=== PATIENT | female | born 1995 | race African-American/Black ===

== ENCOUNTER 2016-06-05 01:43 | Emergency (ER) | payer OTHER ==
[2016-06-05] MEDS ORDERED: NITROFURANTOIN (MACROBID) 100 MG CAP As Ordered ONE (03:19)
--- NOTE | 2016-06-05 03:43 | EDDOCDS ---
Nurse's Notes [facility] Name: Eloisa Khanna Age: 21 yrs Sex: Female : 1995 Arrival Date: 06/05/2016 Time: 01:43 Bed 15 Private MD: ALONSO Rahman Diagnosis: Unspecified infection of urinary tract in Presentation: 06/05 01:48 Presenting complaint: Patient states: stomach pain and chest pain; reports stomach pain af2 since this am- on and off. reports anxiety and trouble breathing with pulling sensation to left chest- chest pain has since resolved- states it comes and goes. Aspirin was not taken prior to arrival. Adult Sepsis Screening: The patient does not have new or worsening altered mentation. Patient's respiratory rate is less than 22. Systolic blood pressure is greater than 100. Patient has a qSOFA score of 0- Negative Sepsis Screen. Suicide/Homicide risk assessment- the patient denies having any suicidal and/or homicidal ideations and does not present with any other emotional, behavioral or mental health complaints. 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 Transition of care: patient was not received from another setting of care. 01:48 Acuity: JED Level 3 af2 01:48 Method Of Arrival: Ambulance af2 Triage Assessment: 01:50 General: Appears in no apparent distress, comfortable, Behavior is appropriate for age, af2 cooperative. Pain: Location: xyphoid area Pain currently is 1 out of 10 on a pain scale. Pt Declines HIV testing. Cardiovascular: Chest pain is described as Pain is 1 out of 10 on a pain scale. radiates Does not radiate. episodes are intermittent began 30 minutes prior to arrival. Respiratory: Airway is patent Respiratory effort is even, unlabored. GI: Reports lower abdominal pain, upper abd pain, Burning. Derm: Skin is normal. 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 Vitamin Oral tab 1 tab once daily - PMHx: none; - PSHx: none; - Social history: Smoking status: Patient states was never smoker of tobacco. No barriers to communication noted, The patient speaks fluent Malaysian. - Family history: Not pertinent. - : The pt / caregiver states he / she is not on anticoagulants. Home medication list is obtained from the patient. - Exposure Risk Screening:: None identified. Screenin:09 Screening information is obtained from the patient. Fall risk: No risks identified. af2 Assistance ADL's: requires no assistance with activities of daily living. Abuse/DV Screen: The patient / caregiver reports he/she is: not in a situation that causes fear, pain or injury. Nutritional screening: No deficits noted. Advance Directives: Currently, there is no health care proxy. home support is adequate. Assessment: 02:10 General: Appears in no apparent distress, comfortable, Behavior is appropriate for age, af2 cooperative. Cardiovascular: No deficits noted. Respiratory: Airway is patent Respiratory effort is even, unlabored. Derm: Skin is normal. 03:24 General: Appears in no apparent distress, comfortable, Behavior is appropriate for age, af2 cooperative. Neurological: Level of Consciousness is awake, alert, obeys commands. Respiratory: Airway is patent Respiratory effort is even, unlabored. Derm: Skin is normal. 03:25 Cardiovascular: Rhythm is. af2 Vital Signs: 01:56 BP 146 / 65 LA Sitting; Pulse 83; Resp 18 S; Temp 96.1(O); Pulse Ox 98% on R/A; Weight af2 89.36 kg (R); Height 5 ft. 7 in. (170.18 cm) (R); Pain 1/10; 01:56 Body Mass Index 30.85 (89.36 kg, 170.18 cm) af2 Vitals: 01:52 Log In Time N/A - ambulance arrival. af2 ED Course: 01:44 Patient visited by Milagros Hernandez, Circuit Clerk. [facility] 01:44 Patient moved to 15 jl 01:45 ALONSO Rahman is Private Physician. jlm 01:47 Lex York DO is Attending Physician. cs11 01:47 Patient visited by Lex York DO. cs11 01:50 Triage Initiated af2 01:57 Patient visited by Kathy Reyes RN. af2 02:09 Urine Culture Sent. af2 02:09 Urinalysis Sent. af2 02:09 Maintain field IV. Dressing intact. Good blood return noted. Site clean & dry. Gauge & af2 site: 20G to left ac.. No procedures done that require assistance. 02:10 Patient visited by Kathy Reyes RN. af2 03:02 [facility] Payment Agreement was scanned into [employer] and attached to record. hs2 03:08 Vernell Grant OB is Referral Physician. cs11 03:09 Patient name changed from Eloisa\S\\S\Khanna\S\ to Eloisa\S\ \S\Khanna. EDMS 03:24 Discontinued IV lock intact, bleeding controlled, pressure dressing applied, No af2 redness/swelling at site. 03:25 The patient / caregiver is instructed regarding the plan of care and ED course. Cardiac af2 monitor on. Pulse ox on. NIBP on. Administered Medications: 03:24 Drug: Nitrofurantoin 100 mg Route: PO; af2 Order Results: Lab Order: Urinalysis; SPEC'M 06/05/16 02:07 Test: APPEARANCE, URINE; Value: HAZY; Range: CLEAR; Status: F Test: COLOR, URINE; Value: YELLOW; Range: YELLOW; Status: F Test: PH,URINE; Value: 6.0; Range: 5.0-9.0; Units: UNITS; Status: F Test: SPECIFIC GRAVITY URINE AUTO; Value: 1.003; Range: 1.002-1.035; Status: F Test: PROTEIN, URINE AUTO; Value: NEGATIVE; Range: NEGATIVE; Units: mg/dL; Status: F Test: GLUCOSE, URINE (UA) AUTO; Value: NEGATIVE; Range: NEGATIVE; Units: mg/dL; Status: F Test: KETONE, URINE AUTO; Value: NEGATIVE; Range: NEGATIVE; Units: mg/dL; Status: F Test: UROBILINOGEN, URINE AUTO; Value: 0.2; Range: 0.0-2.0; Units: mg/dL; Status: F Test: BILIRUBIN, URINE AUTO; Value: NEGATIVE; Range: NEGATIVE; Status: F Test: NITRITE, URINE AUTO; Value: NEGATIVE; Range: NEGATIVE; Status: F Test: LEUKOCYTE ESTERASE, URINE AUTO; Value: TRACE; Range: NEGATIVE; Abnormal: Above high normal; Status: F Test: BLOOD, URINE BLOOD; Value: NEGATIVE; Range: NEGATIVE; Status: F Test: WBC, URINE AUTO; Value: 4; Range: 0-3; Abnormal: Above high normal; Units: /HPF; Status: F Test: RBC, URINE AUTO; Value: 1; Range: 0-3; Units: /HPF; Status: F Test: BACTERIA, URINE AUTO; Value: 1+; Range: NEGATIVE; Abnormal: Above high normal; Status: F Test: SQUAMOUS EPITHELIAL CELL UR AU; Value: 2; Range: 0-6; Units: /HPF; Status: F Test: HYALINE CAST, URINE AUTO; Value: 0; Range: 0-1; Units: /LPF; Status: F Outcome: 03:08 Discharge ordered by Provider. cs11 03:25 Discharge Assessment: Patient awake, alert and oriented x 3. No cognitive and/or af2 functional deficits noted. Patient verbalized understanding of disposition instructions. patient administered narcotics - no. The following High Risk Discharge criteria are identified: None. Discharged to home ambulatory, with significant other. Condition: stable. Discharge instructions given to patient, Instructed on discharge instructions, follow up and referral plans. medication usage, Demonstrated understanding of instructions, medications, Pt was receptive of discharge instructions/ teaching. No special radiology studies were completed. Property :Personal belongings accompany Pt. 03:42 Patient left the ED. af2 Signatures: Dispatcher [employer] EDMS Lex York, DO cs11 Milagros Hernandez, Circuit Clerk Unit Kathy Hayden RN RN af2 Latrice Max, Reg Reg hs2 MTDD
--- NOTE | 2016-06-05 03:43 | EDDOCDS ---
Physician Documentation [facility] Name: Eloisa Khanna Age: 21 yrs Sex: Female : 1995 Arrival Date: 06/05/2016 Time: 01:43 Bed 15 Private MD: Josiah [facility] [place] Disposition: 06/05/16 03:08 Discharged to Home/Self Care. Impression: Unspecified infection of urinary tract in . - Condition is Stable. - Prescriptions for Macrobid 100 mg Oral Capsule - take 100 milligram by ORAL route every 12 hours for 10 days; 20 capsule. - Medication Reconciliation, Local Pharmacy Hours form. - Follow up: Vernell Grant, OB; When: Call to arrange an appointment; Reason: Continuance of care. - Problem is new. - Symptoms have improved. Historical: - Allergies: PENICILLINS (I don't know); - Home Meds: 1. Vitamin Oral tab 1 tab once daily - PMHx: none; - PSHx: none; - Social history: Smoking status: Patient states was never smoker of tobacco. No barriers to communication noted, The patient speaks fluent Montserratian. - Family history: Not pertinent. - : The pt / caregiver states he / she is not on anticoagulants. Home medication list is obtained from the patient. - Exposure Risk Screening:: None identified. 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 7 in. (170.18 cm) (R); Pain 1/10; 01:56 Body Mass Index 30.85 (89.36 kg, 170.18 cm) af2 MDM: 01:59 ECG WITH READING ER PHYS+CARDIAG ordered. EDMS 01:59 ECG WITH READING ER PHYS+CARDIAG ordered. EDMS 02:05 Urinalysis Ordered. EDMS 02:05 Urine Culture Ordered. EDMS 02:49 Financial registration complete. hs2 03:02 [facility] Payment Agreement was scanned into [employer] and attached to record. hs2 03:06 Urinalysis Reviewed. cs11 03:07 Nitrofurantoin 100 mg PO once ordered. cs11 Administered Medications: 03:24 Drug: Nitrofurantoin 100 mg Route: PO; af2 Signatures: Dispatcher [employer] EDMS Lex York, DO cs11 Kathy Reyes RN RN af2 Latrice Max, Reg Reg hs2 The chart was reviewed and I authenticate all verbal orders and agree with the evaluation and treatment provided.Attachments: 03:02 [facility] Payment Agreement hs2 MTDD
--- NOTE | 2016-06-07 04:43 | EDDOCDS ---
Nurse's Notes [facility] Name: Eloisa Khanna Age: 21 yrs Sex: Female : 1995 Arrival Date: 06/05/2016 Time: 01:43 Bed 15 Private MD: ALONSO Rahman Diagnosis: Unspecified infection of urinary tract in Presentation: 06/05 01:48 Presenting complaint: Patient states: stomach pain and chest pain; reports stomach pain af2 since this am- on and off. reports anxiety and trouble breathing with pulling sensation to left chest- chest pain has since resolved- states it comes and goes. Aspirin was not taken prior to arrival. Adult Sepsis Screening: The patient does not have new or worsening altered mentation. Patient's respiratory rate is less than 22. Systolic blood pressure is greater than 100. Patient has a qSOFA score of 0- Negative Sepsis Screen. Suicide/Homicide risk assessment- the patient denies having any suicidal and/or homicidal ideations and does not present with any other emotional, behavioral or mental health complaints. 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 Transition of care: patient was not received from another setting of care. 01:48 Acuity: JED Level 3 af2 01:48 Method Of Arrival: Ambulance af2 Triage Assessment: 01:50 General: Appears in no apparent distress, comfortable, Behavior is appropriate for age, af2 cooperative. Pain: Location: xyphoid area Pain currently is 1 out of 10 on a pain scale. Pt Declines HIV testing. Cardiovascular: Chest pain is described as Pain is 1 out of 10 on a pain scale. radiates Does not radiate. episodes are intermittent began 30 minutes prior to arrival. Respiratory: Airway is patent Respiratory effort is even, unlabored. GI: Reports lower abdominal pain, upper abd pain, Burning. Derm: Skin is normal. 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 Vitamin Oral tab 1 tab once daily - PMHx: none; - PSHx: none; - Social history: Smoking status: Patient states was never smoker of tobacco. No barriers to communication noted, The patient speaks fluent Bolivian. - Family history: Not pertinent. - : The pt / caregiver states he / she is not on anticoagulants. Home medication list is obtained from the patient. - Exposure Risk Screening:: None identified. Screenin:09 Screening information is obtained from the patient. Fall risk: No risks identified. af2 Assistance ADL's: requires no assistance with activities of daily living. Abuse/DV Screen: The patient / caregiver reports he/she is: not in a situation that causes fear, pain or injury. Nutritional screening: No deficits noted. Advance Directives: Currently, there is no health care proxy. home support is adequate. Assessment: 02:10 General: Appears in no apparent distress, comfortable, Behavior is appropriate for age, af2 cooperative. Cardiovascular: No deficits noted. Respiratory: Airway is patent Respiratory effort is even, unlabored. Derm: Skin is normal. 03:24 General: Appears in no apparent distress, comfortable, Behavior is appropriate for age, af2 cooperative. Neurological: Level of Consciousness is awake, alert, obeys commands. Respiratory: Airway is patent Respiratory effort is even, unlabored. Derm: Skin is normal. 03:25 Cardiovascular: Rhythm is. af2 Vital Signs: 01:56 BP 146 / 65 LA Sitting; Pulse 83; Resp 18 S; Temp 96.1(O); Pulse Ox 98% on R/A; Weight af2 89.36 kg (R); Height 5 ft. 7 in. (170.18 cm) (R); Pain 1/10; 01:56 Body Mass Index 30.85 (89.36 kg, 170.18 cm) af2 Vitals: 01:52 Log In Time N/A - ambulance arrival. af2 ED Course: 01:44 Patient visited by Milagros Hernandez, Sql Programmer Analyst. [facility] 01:44 Patient moved to 15 jl 01:45 ALONSO Rahman is Private Physician. jlm 01:47 Lex York DO is Attending Physician. cs11 01:47 Patient visited by Lex York DO. cs11 01:50 Triage Initiated af2 01:57 Patient visited by Kathy Reyes RN. af2 02:09 Urine Culture Sent. af2 02:09 Urinalysis Sent. af2 02:09 Maintain field IV. Dressing intact. Good blood return noted. Site clean & dry. Gauge & af2 site: 20G to left ac.. No procedures done that require assistance. 02:10 Patient visited by Kathy Reyes RN. af2 03:02 [facility] Payment Agreement was scanned into [employer] and attached to record. hs2 03:08 Vernell Grant OB is Referral Physician. cs11 03:09 Patient name changed from Eloisa\S\\S\Khanna\S\ to Eloisa\S\ \S\Khanna. EDMS 03:24 Discontinued IV lock intact, bleeding controlled, pressure dressing applied, No af2 redness/swelling at site. 03:25 The patient / caregiver is instructed regarding the plan of care and ED course. Cardiac af2 monitor on. Pulse ox on. NIBP on. 08:49 T-Sheet-- Draft Copy was scanned into [employer] and attached to record. seh 10:58 PCR was scanned into [employer] and attached to record. gb Administered Medications: 03:24 Drug: Nitrofurantoin 100 mg Route: PO; af2 Order Results: Lab Order: Urinalysis; SPEC'M 06/05/16 02:07 Test: APPEARANCE, URINE; Value: HAZY; Range: CLEAR; Status: F Test: COLOR, URINE; Value: YELLOW; Range: YELLOW; Status: F Test: PH,URINE; Value: 6.0; Range: 5.0-9.0; Units: UNITS; Status: F Test: SPECIFIC GRAVITY URINE AUTO; Value: 1.003; Range: 1.002-1.035; Status: F Test: PROTEIN, URINE AUTO; Value: NEGATIVE; Range: NEGATIVE; Units: mg/dL; Status: F Test: GLUCOSE, URINE (UA) AUTO; Value: NEGATIVE; Range: NEGATIVE; Units: mg/dL; Status: F Test: KETONE, URINE AUTO; Value: NEGATIVE; Range: NEGATIVE; Units: mg/dL; Status: F Test: UROBILINOGEN, URINE AUTO; Value: 0.2; Range: 0.0-2.0; Units: mg/dL; Status: F Test: BILIRUBIN, URINE AUTO; Value: NEGATIVE; Range: NEGATIVE; Status: F Test: NITRITE, URINE AUTO; Value: NEGATIVE; Range: NEGATIVE; Status: F Test: LEUKOCYTE ESTERASE, URINE AUTO; Value: TRACE; Range: NEGATIVE; Abnormal: Above high normal; Status: F Test: BLOOD, URINE BLOOD; Value: NEGATIVE; Range: NEGATIVE; Status: F Test: WBC, URINE AUTO; Value: 4; Range: 0-3; Abnormal: Above high normal; Units: /HPF; Status: F Test: RBC, URINE AUTO; Value: 1; Range: 0-3; Units: /HPF; Status: F Test: BACTERIA, URINE AUTO; Value: 1+; Range: NEGATIVE; Abnormal: Above high normal; Status: F Test: SQUAMOUS EPITHELIAL CELL UR AU; Value: 2; Range: 0-6; Units: /HPF; Status: F Test: HYALINE CAST, URINE AUTO; Value: 0; Range: 0-1; Units: /LPF; Status: F Lab Order: Urine Culture; SPEC'M 06/05/16 02:07 Test: URINE CULTURE; Value: <EXTERNAL COMMENT eCWMed> FULL REPORT IN LAB NOTES (eCW and Medent).; Status: F Test: URINE CULTURE; Value: URINE CULTURE RESULT SPECIMEN APPEARS CONTAMINATED; Status: F Outcome: 03:08 Discharge ordered by Provider. cs11 03:25 Discharge Assessment: Patient awake, alert and oriented x 3. No cognitive and/or af2 functional deficits noted. Patient verbalized understanding of disposition instructions. patient administered narcotics - no. The following High Risk Discharge criteria are identified: None. Discharged to home ambulatory, with significant other. Condition: stable. Discharge instructions given to patient, Instructed on discharge instructions, follow up and referral plans. medication usage, Demonstrated understanding of instructions, medications, Pt was receptive of discharge instructions/ teaching. No special radiology studies were completed. Property :Personal belongings accompany Pt. 03:42 Patient left the ED. af2 Signatures: Dispatcher [employer] EDMS Melly Law, Reg Reg gb Lex York, DO cs11 Milagros Hernandez, Sql Programmer Analyst Unit Kathy Hayden RN RN af2 Latrice Max, Reg Reg hs2 Maryann Bush Chart Complete MTDD
--- NOTE | 2016-06-07 04:43 | EDDOCDS ---
Physician Documentation [facility] Name: Eloisa Khanna Age: 21 yrs Sex: Female : 1995 Arrival Date: 06/05/2016 Time: 01:43 Bed 15 Private MD: [place] [facility]position: 06/05/16 03:08 Discharged to Home/Self Care. Impression: Unspecified infection of urinary tract in . - Condition is Stable. - Prescriptions for Macrobid 100 mg Oral Capsule - take 100 milligram by ORAL route every 12 hours for 10 days; 20 capsule. - Medication Reconciliation, Local Pharmacy Hours form. - Follow up: Vernell Grant, OB; When: Call to arrange an appointment; Reason: Continuance of care. - Problem is new. - Symptoms have improved. Historical: - Allergies: PENICILLINS (I don't know); - Home Meds: 1. Vitamin Oral tab 1 tab once daily - PMHx: none; - PSHx: none; - Social history: Smoking status: Patient states was never smoker of tobacco. No barriers to communication noted, The patient speaks fluent Italian. - Family history: Not pertinent. - : The pt / caregiver states he / she is not on anticoagulants. Home medication list is obtained from the patient. - Exposure Risk Screening:: None identified. 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 7 in. (170.18 cm) (R); Pain 1/10; 01:56 Body Mass Index 30.85 (89.36 kg, 170.18 cm) af2 MDM: 01:59 ECG WITH READING ER PHYS+CARDIAG ordered. EDMS 01:59 ECG WITH READING ER PHYS+CARDIAG ordered. EDMS 02:05 Urinalysis Ordered. EDMS 02:05 Urine Culture Ordered. EDMS 02:49 Financial registration complete. hs2 03:02 [facility] Payment Agreement was scanned into [employer] and attached to record. hs2 03:06 Urinalysis Reviewed. cs11 03:07 Nitrofurantoin 100 mg PO once ordered. cs11 08:49 T-Sheet-- Draft Copy was scanned into [employer] and attached to record. [facility] 10:58 PCR was scanned into [employer] and attached to record. gb Administered Medications: 03:24 Drug: Nitrofurantoin 100 mg Route: PO; af2 Signatures: Dispatcher [employer] EDMS Melly Law, Reg Reg gb Lex York, DO cs11 Kathy ReyesRN RN af2 Latrice Max, Reg Reg hs2 Maryann Bush The chart was reviewed and I authenticate all verbal orders and agree with the evaluation and treatment provided.Attachments: 03:02 [facility] Payment Agreement hs2 08:49 T-Sheet-- Draft Copy [facility] Chart Complete MTDD
--- NOTE | 2016-06-07 04:43 | EDDOCDS ---
Physician Documentation [facility] Name: Eloisa Khanna Age: 21 yrs Sex: Female : 1995 Arrival Date: 06/05/2016 Time: 01:43 Bed 15 Private MD: Josiah [facility] [place] Disposition: 06/05/16 03:08 Discharged to Home/Self Care. Impression: Unspecified infection of urinary tract in . - Condition is Stable. - Prescriptions for Macrobid 100 mg Oral Capsule - take 100 milligram by ORAL route every 12 hours for 10 days; 20 capsule. - Medication Reconciliation, Local Pharmacy Hours form. - Follow up: Vernell Grant, OB; When: Call to arrange an appointment; Reason: Continuance of care. - Problem is new. - Symptoms have improved. Historical: - Allergies: PENICILLINS (I don't know); - Home Meds: 1. Vitamin Oral tab 1 tab once daily - PMHx: none; - PSHx: none; - Social history: Smoking status: Patient states was never smoker of tobacco. No barriers to communication noted, The patient speaks fluent Icelandic. - Family history: Not pertinent. - : The pt / caregiver states he / she is not on anticoagulants. Home medication list is obtained from the patient. - Exposure Risk Screening:: None identified. 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 7 in. (170.18 cm) (R); Pain 1/10; 01:56 Body Mass Index 30.85 (89.36 kg, 170.18 cm) af2 MDM: 01:59 ECG WITH READING ER PHYS+CARDIAG ordered. EDMS 01:59 ECG WITH READING ER PHYS+CARDIAG ordered. EDMS 02:05 Urinalysis Ordered. EDMS 02:05 Urine Culture Ordered. EDMS 02:49 Financial registration complete. hs2 03:02 [facility] Payment Agreement was scanned into [employer] and attached to record. hs2 03:06 Urinalysis Reviewed. cs11 03:07 Nitrofurantoin 100 mg PO once ordered. cs11 08:49 T-Sheet-- Draft Copy was scanned into [employer] and attached to record. [facility] 10:58 PCR was scanned into [employer] and attached to record. gb Administered Medications: 03:24 Drug: Nitrofurantoin 100 mg Route: PO; af2 Signatures: Dispatcher [employer] EDMS Melly Law, Reg Reg gb Lex York, DO cs11 Kathy ReyesRN RN af2 Latrice Max, Reg Reg hs2 Maryann Bush The chart was reviewed and I authenticate all verbal orders and agree with the evaluation and treatment provided.Attachments: 03:02 [facility] [place] Payment Agreement hs2 08:49 T-Sheet-- Draft Copy [facility] Chart Complete MTDD
== END 2016-06-05 03:42 | disposition home or self-care (01) ==
LOC: M ED 01:43
DX: N39.0 Urinary tract infection, site not specified (principal); Z79.899 Other long term (current) drug therapy; Z88.0 Allergy status to penicillin